=== PATIENT | male | born 1955 | race Two or more races ===

== ENCOUNTER 2024-05-23 04:58 | Emergency (ER) | payer OTHER ==
[~2024-05-23] VITALS: Ht 182.9 cm; Wt 81.8 kg
[2024-05-23] MEDS: SODIUM CHLORIDE 0.9% 500 ML IV ONE (05:53)
[2024-05-23] MEDS: METOPROLOL TARTRATE 1MG/1ML-5ML VIAL IV SCH (06:02)
--- NOTE | 2024-05-23 06:03 | ED.PDOC ---
History of Present Illness HPI Comments 68-year-old male came to ER via EMS due to dizziness. Patient has history of hypertension, and Afib, on Eliquis. Had a new pacemaker/ defibrillator inserted (Biotronix) last month. For the past few days he has been having episodes of dizziness and palpitations, that worsened last night. Patient recovering from a recent flu like illness. Blood pressure upon arrival was 124/60 mmHg, and was 140 afib on EKG. Chief Complaint: Dizziness Time Seen by MD: 06:02 Reviewed Notes: Supervisor Publications Production Notes Allergies: Coded Allergies: NO KNOWN ALLERGIES (Unverified , 05/23/24) Home Meds Active Scripts Polyethylene Glycol 3350 (Miralax) 17 Gm Pow, 17 GM PO DAILY PRN for 30 Days, #30 POW 1 Refill Take as needed for constipation. Prov:WADE SUAZO 05/23/24 Information Source: Patient, Emergency Med Personnel Mode of Arrival: EMS Severity: Moderate Timing: Days Review of Systems REVIEW OF SYSTEMS: No fever, no chills, or fatigue HEENT: No sore throat, no earache, no congestion, no neck pain. Cardiac: No chest pain. (+) palpitations. (+) dizziness Lungs: No shortness of breath, no cough. GI: No nausea, no vomiting, no diarrhea, no constipation, no abdominal pain : No dysuria, frequency, or urgency. No hematuria. Musculoskeletal: No joint pain , no joint swelling, no extremity edema. Skin: No rash, no itching. Neuro: No headache, no dizziness, no weakness Vital Signs Vital Signs Date Time Temp Pulse Resp B/P (MAP) Pulse Ox O2 Delivery O2 Flow Rate FiO2 05/23/24 16:00 84 20 135/94 (108) 95 05/23/24 08:00 98.1 98.1 05/23/24 08:00 Room Air* 0 21 Physical Exam General: Awake, alert and oriented. No acute distress. Skin: Skin in warm, dry and intact. Appropriate color for ethnicity. Nailbeds pink with no cyanosis. HEENT: The head is normocephalic and atraumatic. Conjunctivae are clear without exudates or hemorrhage. Sclera is non-icteric. EOM are intact. No signs of nystagmus. Eyelids are normal in appearance without swelling or lesions. Oral mucosa is pink and moist Neck: The neck is supple with normal range of motion. No JVD. Cardiac: Rapid rate, irregular rhythm Respiratory: No signs of respiratory distress. Lung sounds are clear in all lobes bilaterally without rales, ronchi, or wheezes. Abdominal: Abdomen is soft, non-tender without distention. Bowel sounds are present and normoactive in all four quadrants. Extremities: Upper and lower extremities are atraumatic in appearance without deformity or edema. Neurological: The patient is awake, alert and oriented to person, place, and time with normal speech. Speech is clear. There is no facial asymmetry. Psychiatric: Appropriate mood and affect. Good judgement and insight. No visual or auditory hallucinations. Past Medical History PAST MEDICAL HISTORY: AFIB, HTN Surgical History: Pacemaker Family History Family History: Reviewed,noncontributory to illness Social History Smoker: Non-Smoker Alcohol: Denies ETOH Use Drugs: Denies Drug Use Lives In: Home Was a procedure done? Was a procedure done?: No EKG EKG : Pulse Rate (adult): 140 Cardiac Rhythm: Afib Differential Dx Considerations may include: Anemia, electrolyte imbalance, AFib, pacemaker malfunction X-Ray, Labs, Meds, VS Vital Signs Date Time Temp Pulse Resp B/P (MAP) Pulse Ox O2 Delivery O2 Flow Rate FiO2 05/23/24 16:00 84 20 135/94 (108) 95 05/23/24 14:00 92 20 113/78 (90) 97 05/23/24 12:30 84 20 98/64 (75) 94 05/23/24 11:30 85 110/75 05/23/24 10:30 103 20 127/90 (102) 95 05/23/24 08:00 98.1 118 20 102/68 (79) 95 98.1 05/23/24 08:00 118 20 95 Room Air* 0 21 05/23/24 08:00 112 05/23/24 07:00 130 20 92/59 (70) 97 05/23/24 06:18 97.7 153 20 115/70 (85) 96 97.7 05/23/24 06:03 140 05/23/24 06:02 153 115/70 05/23/24 06:00 Room Air* 0 21 05/23/24 05:44 151 05/23/24 05:06 97.6 76 15 126/65 (85) 91 Lab Test 05/23/24 08:32 05/23/24 08:04 05/23/24 06:33 05/23/24 05:25 Range/Units Troponin I High Sensitivity 19 14 </=54 ng/L Urine Color Pending Urine Clarity Pending Urine pH Pending Urine Specific [place] Pending Urine Protein Pending Urine Ketones Pending Urine Blood Pending Urine Nitrite Pending Urine Bilirubin Pending Urine Urobilinogen Pending Urine Leukocyte Esterase Pending Urine RBC Pending Urine Microscopic WBC Pending Urine Squamous Epithelial Cells Pending Urine Bacteria Pending Urine Glucose Pending White Blood Count 7.2 4.4-10.8 10^3/uL Red Blood Count 4.49 L 4.5-5.90 10^6/uL Hemoglobin 14.1 13.5-17.5 g/dL Hematocrit 39.9 L 41.0-53.0 % Mean Corpuscular Volume 88.8 80.0-100.0 fL Mean Corpuscular Hemoglobin 31.5 28.0-32.0 pg Mean Corpuscular Hemoglobin Concent 35.4 32.0-36.0 g/dL Red Cell Distribution Width 13.8 11.8-14.3 % Platelet Count 235 140-450 10^3/uL Mean Platelet Volume 7.9 6.9-10.8 fL Neutrophils (%) (Auto) 51.9 37.0-80.0 % Lymphocytes (%) (Auto) 27.5 10.0-50.0 % Monocytes (%) (Auto) 13.2 H 0.0-12.0 % Eosinophils (%) (Auto) 6.6 0.0-7.0 % Basophils (%) (Auto) 0.8 0.0-2.0 % Neutrophils # (Auto) 3.8 1.6-8.6 10 ^3/uL Lymphocytes # (Auto) 2.0 0.4-5.4 10 ^3/uL Monocytes # (Auto) 1.0 0-1.3 10 ^3/uL Eosinophils # (Auto) 0.5 0-0.8 10 ^3/uL Basophils # (Auto) 0.1 0-0.2 10 ^3/uL Nucleated Red Blood Cells 0.1 % Sodium Level 141 136-145 mmol/L Potassium Level 4.1 3.5-5.1 mmol/L Chloride Level 113 H 98-107 mmol/L Carbon Dioxide Level 23 20-31 mmol/L Anion Gap 5 5-15 Blood Urea Nitrogen 28 H 9-23 mg/dL Creatinine 1.38 H 0.700-1.30 mg/dL Glomerular Filtration Rate Calc 56 >90 mL/min BUN/Creatinine Ratio 20.3 H 10.0-20.0 Serum Glucose 102 74-106 mg/dL Calcium Level 8.7 8.7-10.4 mg/dL Total Bilirubin 1.2 H 0.2-1.0 mg/dL Aspartate Amino Transferase (AST) 28 13-40 U/L Alanine Aminotransferase (ALT) 22 7-40 U/L Alkaline Phosphatase 89 46-116 U/L B-Type Natriuretic Peptide 60.07 0-100 pg/mL Total Protein 6.2 5.7-8.2 g/dL Albumin 3.9 3.2-4.8 g/dL POC Glucose 94 70-106 mg/dl Current Medications Medications (Trade) Dose Ordered Sig/Beba Route Start Time Stop Time Status Last Admin Sodium Chloride 500 ml @ 500 mls/hr Q1H ONCE IV 05/23/24 05:30 05/23/24 06:29 DC 05/23/24 05:53 Metoprolol Tartrate (Lopressor) 5 mg Q5M IV 05/23/24 05:30 05/23/24 06:02 Time of 1ST Reevaluation: 05:55 Reevaluation 1ST: Unchanged Patient Education/Counseling: Diagnosis, Treatment Family Education/Counseling: No Family Present Departure 1 Departure Time of Disposition: 08:13 (Patient with AFib with RVR. Patient receiving fluids and Lopressor. We will admit patient for further workup) Impression: Primary Impression: Atrial fibrillation with RVR Additional Impressions: General weakness Palpitations Disposition: ADMITTED INPATIENT Admit to: Med Surg Condition: Serious e-Prescriptions Polyethylene Glycol 3350 (Miralax) 17 Gm Pow 17 GM PO DAILY PRN for 30 Days, #30 POW 1 Refill Take as needed for constipation. Prov: WADE SUAZO DO 05/23/24 Comments Critical Care Note Critical Care Time?: Yes (35 min-critical care time only) Critical care comment: AFib with RVR Authorized and Performed by: Brie Mancilla MD Total critical care time: Approximately 38 minutes Due to a high probability of clinically significant, life threatening deterioration, the patient required my highest level of preparedness to intervene emergently and I personally spent this critical care time directly and personally managing the patient. This critical care time included obtaining a history; examining the patient; pulse oximetry; ordering and review of studies; arranging urgent treatment with development of a management plan; evaluation of patient's response to treatment; frequent reassessment; and, discussions with other providers. This critical care time was performed to assess and manage the high probability of imminent, life-threatening deterioration that could result in multi-organ failure. It was exclusive of separately billable procedures and treating other patients and teaching time. Please see my other sections and the rest of the note for further information on patient assessment and treatment. Stability Stability form required: No Heart Score Heart Score: Heart Score Response (Comments) Value History Moderate Suspicious 1 EKG Repolarization Disturb 1 Age >65 2 Risk Factors >3 or Hx ASHD 2 Troponin Normal limit 0 Total 6 I personally scribed for ESAU DOBSON MD ([email or web address]) on 05/23/24 at 06:03. Electronically submitted by Tomasz Law ([email or web address]). ESAU DOBSON MD May 23, 2024 06:03 BRIE MANCILLA MD May 23, 2024 08:14
--- NOTE | 2024-05-23 06:14 | DVH ---
EXAM: XR Chest, 1 View CLINICAL INDICATION: cp TECHNIQUE: Frontal view of the chest. COMPARISON: None FINDINGS: LUNGS AND PLEURAL SPACES: Mild pulmonary congestion. No consolidation. No pneumothorax. HEART: Unremarkable. No cardiomegaly. MEDIASTINUM: Unremarkable. Normal mediastinal contour. BONES/JOINTS: Unremarkable. No acute fracture. TUBES, LINES AND DEVICES: Left-sided cardiac pacemaker. OTHER FINDINGS: . IMPRESSION: Mild pulmonary congestion.
[2024-05-23 07:10] LABS: Basophils # (auto) 0.1 10 ^3/uL (0-0.2); Basophils % (auto) 0.8 % (0.0-2.0); Eosinophils # (auto) 0.5 10 ^3/uL (0-0.8); Eosinophils % (auto) 6.6 % (0.0-7.0); Hematocrit 39.9 % (41.0-53.0); Hemoglobin 14.1 g/dL (13.5-17.5); Lymphocytes % (auto) 27.5 % (10.0-50.0); Mean Corpuscular Hemoglobin 31.5 pg (28.0-32.0); Mean Corpuscular Hgb Conc. 35.4 g/dL (32.0-36.0); Mean Corpuscular Volume 88.8 fL (80.0-100.0); Monocytes % (auto) 13.2 % (0.0-12.0); Neutrophils # (auto) 3.8 10 ^3/uL (1.6-8.6); Neutrophils % (auto) 51.9 % (37.0-80.0); Nucleated Red Blood Cells % 0.1 %; Platelet Count (auto) 235 10^3/uL (140-450); Red Blood Cells 4.49 10^6/uL (4.5-5.90); Red Cell Distribution Width 13.8 % (11.8-14.3); White Blood Cell 7.2 10^3/uL (4.4-10.8)
[2024-05-23 07:18] LABS: Alanine Aminotransferase 22 U/L (7-40); Albumin 3.9 g/dL (3.2-4.8); Alkaline Phosphatase 89 U/L (46-116); Anion Gap 5 (5-15); Aspartate Aminotransferase 28 U/L (13-40); BUN/Creatinine Ratio 20.3 (10.0-20.0); Calcium 8.7 mg/dL (8.7-10.4); Carbon Dioxide 23 mmol/L (20-31); Glucose 102 mg/dL (74-106); Potassium 4.1 mmol/L (3.5-5.1); Sodium 141 mmol/L (136-145); Total Protein 6.2 g/dL (5.7-8.2)
[2024-05-23 07:19] LABS: Bilirubin, Total 1.2 mg/dL (0.2-1.0)
[2024-05-23 07:21] LABS: Blood Urea Nitrogen 28 mg/dL (9-23); Chloride 113 mmol/L (98-107)
[2024-05-23 08:00] VITALS: PULSE 118; RESP 20; TEMP 98.1; O2SAT 95
--- NOTE | 2024-05-23 08:22 | ECG ---
[facility] Test Date: 2024-05-23 Test Time: 05:14:23 Pat Name: WINSTON JEAN Department: er Room: Gender: M Senior Quality Control Inspector: : 1955 Requested By: EMERGENCY EMERGENCY Order Number: [id number] Reading MD: Louie Santos Measurements Intervals [place] Rate: 140 P: 0 MS: 0 QRS: -23 QRSD: 86 T: 90 QT: 293 QTc: 447 Interpretive Statements Atrial fibrillation Ventricular premature complex Borderline left axis deviation Abnormal R-wave progression, early transition Electronically Signed On 05-24-2024 18:04:19 PST by Louie Santos Please click the below link to view image of tracing.
[2024-05-23] MEDS: METOPROLOL TARTRATE 50 MG TAB PO ONE (11:30)
[2024-05-23] MEDS ORDERED: SODIUM CHLORIDE 0.9% 500 ML IV ONE (11:30)
[2024-05-23] MEDS ORDERED: POLY335015 PO (13:11)
[2024-05-23] MEDS ORDERED: SODIUM CHLORIDE 0.9% 1,000 ML IV ONE (13:15)
--- NOTE | 2024-05-23 14:18 | DVHDS2 ---
Discharge Summary Date of Admission Date of Discharge: May 23, 2024 Labs/Diagnostic Data: Laboratory Results Test 05/23/24 08:32 05/23/24 06:33 05/23/24 05:25 Troponin I High Sensitivity 19 ng/L (</=54) White Blood Count 7.2 10^3/uL (4.4-10.8) Red Blood Count 4.49 10^6/uL (4.5-5.90) Hemoglobin 14.1 g/dL (13.5-17.5) Hematocrit 39.9 % (41.0-53.0) Mean Corpuscular Volume 88.8 fL (80.0-100.0) Mean Corpuscular Hemoglobin 31.5 pg (28.0-32.0) Mean Corpuscular Hemoglobin Concent 35.4 g/dL (32.0-36.0) Red Cell Distribution Width 13.8 % (11.8-14.3) Platelet Count 235 10^3/uL (140-450) Mean Platelet Volume 7.9 fL (6.9-10.8) Neutrophils (%) (Auto) 51.9 % (37.0-80.0) Lymphocytes (%) (Auto) 27.5 % (10.0-50.0) Monocytes (%) (Auto) 13.2 % (0.0-12.0) Eosinophils (%) (Auto) 6.6 % (0.0-7.0) Basophils (%) (Auto) 0.8 % (0.0-2.0) Neutrophils # (Auto) 3.8 10 ^3/uL (1.6-8.6) Lymphocytes # (Auto) 2.0 10 ^3/uL (0.4-5.4) Monocytes # (Auto) 1.0 10 ^3/uL (0-1.3) Eosinophils # (Auto) 0.5 10 ^3/uL (0-0.8) Basophils # (Auto) 0.1 10 ^3/uL (0-0.2) Nucleated Red Blood Cells 0.1 % Sodium Level 141 mmol/L (136-145) Potassium Level 4.1 mmol/L (3.5-5.1) Chloride Level 113 mmol/L (98-107) Carbon Dioxide Level 23 mmol/L (20-31) Anion Gap 5 (5-15) Blood Urea Nitrogen 28 mg/dL (9-23) Creatinine 1.38 mg/dL (0.700-1.30) Glomerular Filtration Rate Calc 56 mL/min (>90) BUN/Creatinine Ratio 20.3 (10.0-20.0) Serum Glucose 102 mg/dL (74-106) Calcium Level 8.7 mg/dL (8.7-10.4) Total Bilirubin 1.2 mg/dL (0.2-1.0) Aspartate Amino Transferase (AST) 28 U/L (13-40) Alanine Aminotransferase (ALT) 22 U/L (7-40) Alkaline Phosphatase 89 U/L (46-116) B-Type Natriuretic Peptide 60.07 pg/mL (0-100) Total Protein 6.2 g/dL (5.7-8.2) Albumin 3.9 g/dL (3.2-4.8) POC Glucose 94 mg/dl (70-106) Other Laboratory Tests 05/23/24 06:33 Brief Hx & Hospital Course: Patient is a 68-year-old male past medical history of atrial fibrillation, recent pacemaker placement who presented with complaints of palpitations and dizziness. Patient arrived and was noted to be in atrial fibrillation RVR with rate of 140s to 150s. Patient was given metoprolol 5 mg IV x 1 which subsequently improved his rate. Patient notes that he takes metoprolol extended release 100 mg daily. He notes that he has had decreased p.o. intake and has been recently taking Vicodin after his pacemaker placement for pain. As a result, he has had constipation for 5 days and his first bowel movement was here in the ER. Patient was given a total of 2 L NS IV. Metoprolol 100 mg PO was given. Heart rate subsequently stabilized to reveal 100. BP was noted to maintain with a MAP greater than 75. CBC did not reveal any leukocytosis. CMP was consistent with PIERCE. BUN/creatinine was 28/1.38. Chest x-ray was done and showed mild pulmonary congestion. Patient denied any shortness of breath. BNP was noted to be 60. No lower extremity edema was noted. Patient was monitored for several hours. Vitals remained stable, and heart rate was rate controlled. Patient was discharged on MiraLAX for constipation. He is to continue taking his metoprolol as prescribed. 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 Patient was in agreement with the plan. [facility] case management arrange for appointments. Condition at Discharge: Good Final Diagnosis/Problems List Atrial Fibrillation with RVR Secondary Diagnosis: Pacemaker PIERCE due to [employer] Discharge Disposition: Home Discharge Instruct/Medications Diet: Cardiac 2g Na,low cholest Activity: No Restrictions, As Tolerated Follow Up/Referral: Follow up with cardiology. Medications: Continue taking home metoprolol as previously prescribed. Take miralax as needed for constipation. Discharge Statement: "Patient was advised to return to the ER or call 911 if any headaches, dizziness, shortness of breath, chest pain, abdominal pain, bleeding, fevers, or worsening of medical condition. Patient was counseled about treatment plan, medications, possible side effects, patientverbalized understanding. All questions were answered to the best of my ability. This discharge took greater then 30 minutes in planning, reviewing documentation, counseling the patient, and discussing with other team members." ASSESSMENT ASSESSMENT Assessment Atrial Fibrillation with RVR WADE SUAZO DO May 23, 2024 14:18
[2024-05-23 16:00] VITALS: BP 135/94; PULSE 84; RESP 20; O2SAT 95
[2024-05-23 20:38] LABS: Urine Bacteria FEW /hpf (None Seen); Urine Blood Negative /uL (Negative); Urine Clarity Clear (Clear); Urine Color Yellow (Yellow); Urine Hyaline Cast FEW /lpf (0 - 2); Urine Mucus FEW (None Seen); Urine Protein, UAD Negative (Negative); Urine Specific Gravity 1.023 (1.001-1.035); Urine Squamous Epithelial Cell FEW /hpf (<5); Urine Urobilinogen Normal (Negative); Urine WBC 1 /HPF (0-3); Urine pH 5.5 (5.0-9.0)
== END 2024-05-23 13:14 | disposition home or self-care (01) ==
LOC: EDBD 04:58 → ER 04:58
DX: I48.20 Chronic atrial fibrillation, unspecified (principal); R00.2 Palpitations; R53.1 Weakness; I10 Essential (primary) hypertension; Z95.0 Presence of cardiac pacemaker; Z79.01 Long term (current) use of anticoagulants
CPT/HCPCS: 36415; 71045; 80053; 81001; 82947; 82962; 83880; 84484; 85025; 93005; 96374